=== PATIENT | female | born 1960 | race Two or more races ===

== ENCOUNTER 2023-09-25 18:36 | Emergency (ER) | payer OTHER, SELFPAY ==
[2023-09-25 18:38] VITALS: BP 169/99; PULSE 100; RESP 16; TEMP 36.2; O2SAT 96; BMI 32.9
--- NOTE | 2023-09-25 19:23 | RAD_ITS ---
STUDY: X-RAY - LEFT KNEE REASON FOR EXAM: Female, 63 years old. fall TECHNIQUE: 3 view(s) of the knee. COMPARISON: None. FINDINGS: Normal visualized distal femur. Normal visualized proximal tibia and fibula. Normal proximal tibiofibular articulation. There is no demonstrated fracture. Normal medial femorotibial compartment. Normal lateral femorotibial compartment. Normal patellofemoral articulation. There is a moderate volume joint effusion. The soft tissue structures are unremarkable. RAD/Knee 3 Views IMPRESSION: No fracture or dislocation. Moderate effusion. Electronically Signed: Braydon Flores MD at 20:19 EDT ,
--- NOTE | 2023-09-25 20:29 | EDS_ITS ---
HPI History of Present Illness Chief Complaint: Lower Extremity Injury Narrative Narrative: Patient is a 63-year-old female with no known significant past medical history who presents to the emergency department chief complaint of left knee pain. Patient states that this evening she was riding a horse and notes that she when she went to get off the floor she tweaked her left knee. She states that she did not fall she not hit her head she not pass out she remembers hide in fact. Patient denies any blood thinning medications. Patient states that she was able to ambulate afterwards however was painful for her to do so. She states that she normally uses a stepstool to get down however did not tonight. [facility] Medical History (Updated 09/25/23 @ 20:[address] Castillo Anthony DO) Hx of nephrolithotomy with removal of calculi Home Medications ?Medication ?Instructions ?Recorded ?Last Taken ?Type cholecalciferol (vitamin D3) 10 400 unit PO DAILY 03/29/18 Unknown History mcg (400 unit) capsule multivitamin with minerals-folic mcg PO 03/29/18 Unknown History acid 200 mcg chewable tablet (Adult Multivitamin Extra Vitamin D3) Allergy/AdvReac Type Severity Reaction Status Date / Time codeine Allergy Mild Vomiting Verified 09/25/23 18:40 Social History Smoking Status: Never smoker alcohol intake: current alcohol intake frequency: holidays/special occasions only substance use type: does not use what type of physical activity do you participate in: running and aerobics frequency: 1-2 times per week ROS ROS ED ROS Narrative Constitutional: Denies any headaches, fevers, chills, lightness, dizziness Eyes: Denies change in vision double vision blurry vision Cardiovascular: Denies chest pain Respiratory: Denies shortness of breath Abdomen: Denies abdominal pain nausea vomit diarrhea : Denies urinary symptoms Neurological: Denies numbness or weakness, tingling Musculoskeletal: Complains of left knee pain as noted above Skin: Denies rashes or lesions EXAM Physical Exam Narrative Exam Narrative: General: Patient lying in bed resting comfortably did not appear to be in acute distress Head: Atraumatic, normocephalic Eyes: PERRL bilaterally, EOMI bilaterally, no conjunctival injection noted Neck: Soft and supple, trach midline Cardiovascular: Regular rate and rhythm no murmurs gallops rubs noted Respiratory: Clear to auscultation bilaterally Musculoskeletal: Patient's left knee was ranged she states that she has some discomfort with this. ACL appears to be intact. Extensor mechanism appears to be intact Extremities: +5/5 strength noted in the bilateral lower extremities, no pedal ed wade no exam, DP pulses +2/4 in the bilateral lower extremities Neurological: Patient following commands knew that she was at [facility] year is 2023 sensation grossly intact in the bilateral extremities Skin: Warm, dry, intact Const Vital Signs: 09/25/23 18:38 Temperature 97.1 F L Temperature Source Temporal Pulse Rate 100 Respiratory Rate 16 Blood Pressure 169/99 H Blood Pressure Mean 122 Pulse Ox 96 Oxygen Delivery Method Room Air MDM MDM MDM Narrative Medical decision making narrative: Patient is a 63-year-old female who presented to the emerged part with chief complaint of left knee pain. Patient will have a workup performed here on the differential diagnose includes but not limited to proximal tibial plateau fracture, femur fracture, knee sprain, MCL tear. Patient's x-ray showed no fracture or dislocation with moderate effusion noted. Patient is requesting pain medication this will be ordered. Patient was encouraged to follow-up with orthopedics in the outpatient setting as well as her primary care physician. Patient was encouraged to ice elevate and ambulate as tolerated. She is requesting crutches. She would like to go home all question concerns were answered she was discharged home in stable condition. Patient was encouraged to use ibuprofen Tylenol [id number] for pain control. Radiography Diagnostic Testing: Clinical Impression(s) from Imaging Studies Knee X-Ray 09/25/23 19:23 IMPRESSION: No fracture or dislocation. Moderate effusion. Electronically Signed: Braydon Flores MD at 20:19 EDT , Discharge Plan Triage Chief Complaint: Lower Extremity Injury ED Provider: Castillo Anthony Dx/Rx/DC Orders Clinical Impression: Knee pain, left, Left knee sprain Prescriptions: No Action Adult Multivitamin Extra VitD3 200 mcg tablet,chewable PO cholecalciferol (vitamin D3) 400 unit capsule 400 unit PO DAILY Primary Care Provider: Riddhi Butler Referrals: Anthony Collado DO [Med Staff - Active Staff] - Riddhi Butler DO [Primary Care Provider] - Print Language: Albanian Disposition Disposition: Home, Self Care
[2023-09-25] MEDS: HYDROcodone Bitartrate/Apap 5/325 Tablet PO (20:36)
[2023-09-25] MEDS: Ondansetron ODT 4 MG Tablet PO (20:36)
--- NOTE | 2023-09-25 20:47 | ED.RN ---
Pt refused crutches due to no insurance. This RN educated on ice and elevation and rest.
== END 2023-09-25 20:47 | disposition home or self-care (01) ==
PROVIDERS: Emergency Provider Emergency Medicine; PCP Internal Medicine; Visit Provider Emergency Medicine
DX: S83.92XA Sprain of unspecified site of left knee, initial encounter (principal); X50.1XXA Overexertion from prolonged static or awkward postures, initial encounter; Y93.52 Activity, horseback riding; Y92.89 Other specified places as the place of occurrence of the external cause
CPT/HCPCS: 73562; 99282

== ENCOUNTER → 2023-10-09 | Outpatient (CLI) | payer SELFPAY ==
[2023-10-09 18:11] LABS: Color, Urine Amber (Yellow); Glucose, Dipstick Normal (Normal); Ketone-Dipstick Negative (Negative); Leukocyte Esterase-Dipstick 100 /ul (Negative); Nitrite-Dipstick Positive (Negative); Occult Blood-Urine 10 /ul (Negative); Protein-Dipstick 15 mg/dl (Negative); Urine Clarity Clear (Clear); Urine Urobilinogen 8 mg/dl (Normal)
[2023-10-09 18:18] LABS: Urine Bilirubin Dipstick 3 mg/dL (Negative)
[2023-10-09 18:24] LABS: Bacteria 3+ /hpf (None Seen); Red Blood Cells-Urine 0-5 SEEN /hpf (0-5); White Blood Cells 10-25 SEEN /hpf (0-5)
[2023-10-09 18:26] LABS: Mucous, Urine 1+ /hpf (<or=2+); Squamous Epithelial Cells - UA 0-5 SEEN /hpf (5-10); Transitional Epithelial - Ur 0-5 SEEN /hpf (0-5)
== END | disposition home or self-care (01) ==
LOC: LABSPEC 17:34
PROVIDERS: PCP Internal Medicine; Visit Provider Physician Assistant Surgical
DX: R30.0 Dysuria (principal); N39.0 Urinary tract infection, site not specified
CPT/HCPCS: 81001; 87077; 87086; 87088; 87186